=== PATIENT | male | born 1985 | race Caucasian/White ===

== ENCOUNTER 2017-11-09 20:54 | Emergency (ER) | payer SELFPAY ==
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
[2017-11-09] MEDS ORDERED: OXYCODONE/APAP 5/325 TAB PO ONE (21:23)
[2017-11-09] MEDS ORDERED: ONDANSETRON DISINTEGRATING 4 MG TAB PO ONE (21:23)
[2017-11-09] MEDS ORDERED: BACITRACIN ZINC 14.2 GM OINTTUBE TP ONE (22:00)
[2017-11-09] MEDS ORDERED: OXYCODONE/APAP 5/325MG PREPACK#4 BTL TAKEHOME ONE (22:31)
[2017-11-09 22:51] VITALS: BP 131/79
== END 2017-11-09 22:51 | disposition home or self-care (01) ==
PROC: 2W28X4Z Dressing of Right Upper Extremity using Bandage (ICD-10-PCS; principal; 2017-11-09)
PROC: 2W29X4Z Dressing of Left Upper Extremity using Bandage (ICD-10-PCS; principal; 2017-11-09)
DX: T23.201A Burn of second degree of right hand, unspecified site, initial encounter (principal); T23.202A Burn of second degree of left hand, unspecified site, initial encounter; F17.200 Nicotine dependence, unspecified, uncomplicated; T31.0 Burns involving less than 10% of body surface; X15.0XXA Contact with hot stove (kitchen), initial encounter